=== PATIENT | female | born 1990 | race American Indian/Alaskan Native ===

== ENCOUNTER 2018-04-03 13:27 | Emergency (ER) | payer MEDICAID ==
[2018-04-03 13:46] VITALS: BP 131/78
--- NOTE | 2018-04-03 13:47 | Emergency Department Report ---
Chief Complaint: Sore Throat Stated Complaint: SORE THROAT/HEADACHE/VOMITING Time Seen by Provider: 04/03/18 13:43 - HPI History of Present Illness: CO SORE THROAT NO FEVER LMP 1 M AGO TRYING TO GET PREG PMH HTN RX NONE PCP NONE PSH [facility] INTACT NO ABSCESS MSE COMPLETED MSE screening note: Focused history and physical exam performed. Due to findings the following was ordered: ED Disposition for MSE Condition: Stable
--- NOTE | 2018-04-03 14:31 | Emergency Department Report ---
Minor Respiratory - HPI Chief Complaint: Sore Throat Stated Complaint: SORE THROAT/HEADACHE/VOMITING Time Seen by Provider: 04/03/18 13:43 Duration: 3 Days Pain Location: Throat Severity: severe ( 11/19) Minor Respiratory: Yes Rhinorrhea (postnasal drip), Yes Sore Throat (Assessment and sore worse with swallowing. no drooling), Yes Able to Tolerate Fluids, No Ear Pain, No Cough, No Sick Contacts, No Hemoptysis, No Chest Pain, No Shortness of Breath, No Fever Other History: This is a 24-year-old female here report that she has sore throat 3 days and she has been having nausea and vomiting suspect that she is . Last menstrual period was 03/03/2018. Denies any abdominal or back pain. Denies any fever chills or any vaginal bleeding or discharge. Denies any cough, shortness of breath. ED Review of Systems ROS: Stated complaint: SORE THROAT/HEADACHE/VOMITING Other details as noted in HPI Constitutional: denies: chills, fever ENT: throat pain, congestion (postnasal drip). denies: ear pain, dental pain Respiratory: denies: cough, shortness of breath, wheezing Cardiovascular: denies: chest pain, palpitations, edema, syncope Gastrointestinal: nausea, vomiting. denies: abdominal pain, diarrhea Musculoskeletal: denies: back pain, joint swelling, arthralgia, myalgia Skin: denies: rash Neurological: denies: headache, weakness, abnormal gait, vertigo ED Past Medical Hx - Past Medical History Previous Medical History?: Yes Hx Hypertension: Yes (no meds) - Surgical History Past Surgical History?: Yes Additional Surgical History: tonsillectomy. Jaw wired. - Family History Family history: hypertension - Social History Smoking Status: Never Smoker Substance Use Type: None - Medications Home Medications: Home Medications Medication Instructions Recorded Confirmed Last Taken Type metroNIDAZOLE [Flagyl TAB] 500 mg PO Q12HR 7 Days tab 12/21/14 Unknown Rx Fluticasone [Flonase] 1 spray NS QDAY #1 bottle 06/13/15 Unknown Rx Ibuprofen [Motrin] 600 mg PO Q8H PRN #30 tablet 06/13/15 Unknown Rx guaiFENesin ER [Mucinex ER] 600 mg PO Q12H 5 Days #10 tablet.er 04/03/18 Unknown Rx Minor Respiratory Exam - Exam General: Vital signs noted. No distress. Alert and acting appropriately. This is a 28-year-old female well-nourished well-developed in no acute distress. HEENT: Yes Moist Mucous Membranes (uvula midline and oral airways patent), Yes Rhinorrhea (his mucosa pale and boggy with clear drainage), No Pharyngeal Erythema, No Pharyngeal Exudates, No Conjuctival Injection, No Frontal Tenderness, No Maxillary Tenderness Ear: Neither TM Bulge (bilateral TM congested), Neither TM Erythema, Neither EAC Pain, Neither EAC Discharge Neck: Yes Supple (full range of motion), No Adenopathy Lungs: Yes Good Air Exchange, No Wheezes, No Ronchi, No Stridor, No Cough, No Labored Respirations, No Retractions, No Use of Accessory Muscles, No Other Abnormal Lung Sounds Heart: Yes Regular, No Murmur Abdomen: Yes Normal Bowel Sounds (normal bowel sounds in all quadrants), No Tenderness (nontender to palpate in all quadrants.), No Peritoneal Signs Skin: No Rash, No Edema Neurologic: Alert and oriented 3, no deficits. Musculoskeletal: Unremarkable. No cce. + 2 pulses in all extremities, no neurovascular compromise ED Course Vital Signs 04/03/18 13:43 Temperature 98.8 F Pulse Rate 91 H Respiratory 18 Rate Blood Pressure 131/78 O2 Sat by Pulse 100 Oximetry - Reevaluation(s) Reevaluation #1: 04/03/18 14:52 Patient states throughout ED course ED Medical Decision Making - Lab Data Lab Results 04/03/18 Range/Units 13:46 Group A Strep Rapid Negative (Negative) - Medical Decision Making This 28-year-old female here report sore throat and nausea and vomiting and suspect that she is . She does not have any related issue. Patient found to have allergic rhinitis. I discussed with her that her strep test is negative and I will refer her to VIDEO RENTAL CLERK if she does not have one and also referred to primary care. She voiced understanding. Patient discharged home in stable condition given instruction to take Mucinex and to follow-up in 3 days. Vital signs are stable she is afebrile and in no acute distress Critical care attestation.: If time is entered above; I have spent that time in minutes in the direct care of this critically ill patient, excluding procedure time. ED Disposition Clinical Impression: Acute pharyngitis Qualifiers: Pharyngitis/tonsillitis etiology: other specified organisms Qualified Code(s): J02.8 - Acute pharyngitis due to other specified organisms Allergic rhinitis Qualifiers: Allergic rhinitis trigger: unspecified Allergic rhinitis seasonality: unspecified Qualified Code(s): J30.9 - Allergic rhinitis, unspecified Disposition: DC-01 TO HOME OR SELFCARE Is pt being admited?: No Does the pt Need Aspirin: No Condition: Stable Instructions: Pharyngitis (ED), Allergic Rhinitis (ED) Additional Instructions: Take medication as prescribed. He can take [id number] Tylenol per dosing chart guidelines not to exceed 2 g. Please follow-up with primary care and VIDEO RENTAL CLERK for concern of being . The test to check. Prescriptions: guaiFENesin ER [Mucinex ER] 600 mg PO Q12H 5 Days #10 tablet.er Referrals: [facility] [Provider Group] - 04/06/18 [facility] [Outside] - 04/06/18 Forms: Work/School Release Form(ED)
== END 2018-04-03 15:03 | disposition home or self-care (01) ==
LOC: ED 13:27
DX: J30.9 Allergic rhinitis, unspecified (principal); J02.8 Acute pharyngitis due to other specified organisms; I10 Essential (primary) hypertension
CPT/HCPCS: 87116; 87430

== ENCOUNTER 2018-04-10 00:26 | Emergency (ER) | payer MEDICAID ==
[2018-04-10 00:35] VITALS: BP 152/96
[2018-04-10 02:02] LABS: HCG Qualitative,Urine Negative (Negative)
[2018-04-10 02:07] LABS: Bilirubin,Urine NEG (Negative); Blood,Urine LG (Negative); Color,Urine Yellow (Yellow); Mucus,Urine 1+ /HPF
[2018-04-10 02:12] LABS: RBC,Urine > 182.0 /HPF (0.0-6.0)
[2018-04-10] MEDS ORDERED: LEVAQUIN PO STA (02:14)
--- NOTE | 2018-04-10 03:05 | Emergency Department Report ---
ED Female HPI - General Chief complaint: Urogenital-Female Stated complaint: FREQUENT URINATION/DEHYDRATION Time Seen by Provider: 04/10/18 02:45 Source: patient Mode of arrival: Ambulatory Limitations: No Limitations - History of Present Illness Initial comments: 28-year-old Filipino female, doesn't emergency department complaining of a 2 week history of increased urinary urgency increased urinary frequency. Mild pelvic pressure. She became more work today as she had a bout of enuresis today spontaneously reported mouth flank pain that preceded the about that has since resolved. No fever, chills, sweats, congestion palpitations. No heat, no no hematuria, no vaginal discharge, vaginal bleeding. She reports no pelvic pain. She denies any trauma. MD Complaint: dysuria Location: suprapubic Radiation: non-radiating Quality: dull Consistency: constant Worsens with: urination Associated Symptoms: denies: vaginal discharge, vaginal bleeding, abdominal pain, nausea/vomiting, fever/chills, headaches, loss of appetite, hematuria, rash, shortness of breath, syncope, weakness - Related Data Previous Rx's Medication Instructions Recorded Last Taken Type metroNIDAZOLE [Flagyl TAB] 500 mg PO Q12HR 7 Days tab 12/21/14 Unknown Rx Fluticasone [Flonase] 1 spray NS QDAY #1 bottle 06/13/15 Unknown Rx Ibuprofen [Motrin] 600 mg PO Q8H PRN #30 tablet 06/13/15 Unknown Rx guaiFENesin ER [Mucinex ER] 600 mg PO Q12H 5 Days #10 tablet.er 04/03/18 Unknown Rx Nitrofurantoin Monohyd/M-Cryst 100 mg PO BID #20 capsule 04/10/18 Unknown Rx [Macrobid 100 mg Capsule] Phenazopyridine [Pyridium] 200 mg PO TID #9 tab 04/10/18 Unknown Rx Allergies Allergy/AdvReac Type Severity Reaction Status Date / Time No Known Allergies Allergy Unverified 12/21/14 13:27 ED Review of Systems ROS: Stated complaint: FREQUENT URINATION/DEHYDRATION Other details as noted in HPI Constitutional: denies: chills, fever Eyes: denies: eye pain, eye discharge, vision change ENT: denies: ear pain, throat pain Respiratory: denies: cough, shortness of breath, wheezing Cardiovascular: denies: chest pain, palpitations Endocrine: no symptoms reported Gastrointestinal: denies: abdominal pain, nausea, diarrhea Genitourinary: denies: urgency, dysuria, discharge Musculoskeletal: denies: back pain, joint swelling, arthralgia Skin: denies: rash, lesions Neurological: denies: headache, weakness, paresthesias Psychiatric: denies: anxiety, depression Hematological/Lymphatic: denies: easy bleeding, easy bruising ED Past Medical Hx - Past Medical History Hx Hypertension: Yes (no meds) - Surgical History Additional Surgical History: tonsillectomy. Jaw wired. - Social History Smoking Status: Never Smoker Substance Use Type: None - Medications Home Medications: Home Medications Medication Instructions Recorded Confirmed Last Taken Type metroNIDAZOLE [Flagyl TAB] 500 mg PO Q12HR 7 Days tab 12/21/14 Unknown Rx Fluticasone [Flonase] 1 spray NS QDAY #1 bottle 06/13/15 Unknown Rx Ibuprofen [Motrin] 600 mg PO Q8H PRN #30 tablet 06/13/15 Unknown Rx guaiFENesin ER [Mucinex ER] 600 mg PO Q12H 5 Days #10 tablet.er 04/03/18 Unknown Rx Nitrofurantoin Monohyd/M-Cryst 100 mg PO BID #20 capsule 04/10/18 Unknown Rx [Macrobid 100 mg Capsule] Phenazopyridine [Pyridium] 200 mg PO TID #9 tab 04/10/18 Unknown Rx ED Physical Exam - General Limitations: No Limitations General appearance: alert, in no apparent distress - Head Head exam: Present: atraumatic, normocephalic - Eye Eye exam: Present: normal appearance - ENT ENT exam: Present: mucous membranes moist - Neck Neck exam: Present: normal inspection - Respiratory Respiratory exam: Present: normal lung sounds bilaterally. Absent: respiratory distress - Cardiovascular Cardiovascular Exam: Present: regular rate, normal rhythm. Absent: systolic murmur, diastolic murmur, rubs, gallop - GI/Abdominal GI/Abdominal exam: Present: soft, normal bowel sounds - Extremities Exam Extremities exam: Present: normal inspection - Back Exam Back exam: Present: normal inspection - Neurological Exam Neurological exam: Present: alert, oriented X3 - Psychiatric Psychiatric exam: Present: normal affect, normal mood - Skin Skin exam: Present: warm, dry, intact, normal color. Absent: rash ED Course Vital Signs 04/10/18 00:33 Temperature 98.9 F Pulse Rate 94 H Respiratory 16 Rate Blood Pressure 152/96 O2 Sat by Pulse 97 Oximetry Critical care attestation.: If time is entered above; I have spent that time in minutes in the direct care of this critically ill patient, excluding procedure time. ED Disposition Clinical Impression: UTI (urinary tract infection) Disposition: - TO HOME OR SELFCARE Is pt being admited?: No Does the pt Need Aspirin: No Condition: Stable Instructions: Urinary Tract Infection in Women (ED), Phenazopyridine (By mouth) Prescriptions: Nitrofurantoin Monohyd/M-Cryst [Macrobid 100 mg Capsule] 100 mg PO BID #20 capsule Phenazopyridine [Pyridium] 200 mg PO TID #9 tab Referrals: ILSA HERNÁNDEZ MD [Primary Care Provider] - 3-5 Days
== END 2018-04-10 03:10 | disposition home or self-care (01) ==
LOC: ED 00:26
DX: N39.0 Urinary tract infection, site not specified (principal); I10 Essential (primary) hypertension; Z90.89 Acquired absence of other organs
CPT/HCPCS: 81001; 81025; 99283

== ENCOUNTER 2018-04-28 18:53 | Emergency (ER) | payer MEDICAID | END 2018-04-28 22:24 | disposition left against medical advice (07) | LOC: ED 18:53 | DX: M79.89 Other specified soft tissue disorders (principal); Z53.21 Procedure and treatment not carried out due to patient leaving prior to being seen by health care provider ==

== ENCOUNTER 2018-08-27 03:05 | Emergency (ER) | payer MEDICAID ==
[2018-08-27 03:22] VITALS: BP 127/79
[2018-08-27 04:56] LABS: HCG Qualitative,Urine Negative (Negative)
[2018-08-27 05:22] LABS: Bacteria,Urine 2+ /HPF (Negative); Bilirubin,Urine NEG (Negative); Blood,Urine NEG (Negative); Color,Urine Yellow (Yellow); Mucus,Urine 3+ /HPF; Protein,Urine <15 mg/dL mg/dL (Negative); Urobilinogen,Urine < 2.0 mg/dL (<2.0)
== END 2018-08-27 04:50 | disposition left against medical advice (07) ==
LOC: ED 03:05
DX: R10.30 Lower abdominal pain, unspecified (principal); N89.8 Other specified noninflammatory disorders of vagina; Z53.21 Procedure and treatment not carried out due to patient leaving prior to being seen by health care provider
CPT/HCPCS: 81001; 81025; 87086

== ENCOUNTER 2018-08-29 15:26 | Emergency (ER) | payer MEDICAID ==
--- NOTE | 2018-08-29 15:42 | Event Note ---
ED Screening Note Date of service: 08/29/18 Time: 15:41 ED Screening Note: 28 y/o female comes in for lower back pain abnormal ua. Vaginal discharge. This initial assessment/diagnostic orders/clinical plan/treatment(s) is/are subject to change based on patients health status, clinical progression and re- assessment by fellow clinical providers in the ED. Further treatment and workup at subsequent clinical providers discretion. Patient/guardian urged not to elope from the ED as their condition may be serious if not clinically assessed and managed. Initial orders include:
[2018-08-29 15:44] VITALS: BP 129/92
[2018-08-29] MEDS ORDERED: XYLOCAINE 1% MPF 5 mL INFILTRATI ONE (16:52)
[2018-08-29] MEDS ORDERED: ROCEPHIN IM ONE (16:52)
--- NOTE | 2018-08-29 17:22 | Emergency Department Report ---
ED Female HPI - General Chief complaint: Urogenital-Female Stated complaint: CHEST PAIN/DISCHARGE Time Seen by Provider: 08/29/18 16:06 Source: patient Mode of arrival: Ambulatory Limitations: No Limitations - History of Present Illness Initial comments: This is a 28-year-old female returns to the ED after being here 2 days ago with symptoms of dysuria and low back pain. Patient was called to return to the ED for treatment. Patient returns today complaining of urinary frequency and dysuria. She denies fevers/chills/nausea vomiting MD Complaint: dysuria - Related Data Previous Rx's Medication Instructions Recorded Last Taken Type metroNIDAZOLE [Flagyl TAB] 500 mg PO Q12HR 7 Days tab 12/21/14 Unknown Rx Fluticasone [Flonase] 1 spray NS QDAY #1 bottle 06/13/15 Unknown Rx Ibuprofen [Motrin] 600 mg PO Q8H PRN #30 tablet 06/13/15 Unknown Rx guaiFENesin ER [Mucinex ER] 600 mg PO Q12H 5 Days #10 tablet.er 04/03/18 Unknown Rx Nitrofurantoin Monohyd/M-Cryst 100 mg PO BID #20 capsule 04/10/18 Unknown Rx [Macrobid 100 mg Capsule] Phenazopyridine [Pyridium] 200 mg PO TID #9 tab 04/10/18 Unknown Rx Fluconazole [Diflucan TAB] 200 mg PO QDAY #1 tablet 08/29/18 Unknown Rx metroNIDAZOLE [Flagyl TAB] 500 mg PO Q12HR #14 tab 08/29/18 Unknown Rx Allergies Allergy/AdvReac Type Severity Reaction Status Date / Time No Known Allergies Allergy Verified 08/29/18 15:44 ED Review of Systems ROS: Stated complaint: CHEST PAIN/DISCHARGE Other details as noted in HPI Comment: All other systems reviewed and negative ED Past Medical Hx - Past Medical History Hx Hypertension: Yes (no meds) - Surgical History Additional Surgical History: tonsillectomy. Jaw wired. - Social History Smoking Status: Never Smoker Substance Use Type: None - Medications Home Medications: Home Medications Medication Instructions Recorded Confirmed Last Taken Type metroNIDAZOLE [Flagyl TAB] 500 mg PO Q12HR 7 Days tab 12/21/14 Unknown Rx Fluticasone [Flonase] 1 spray NS QDAY #1 bottle 06/13/15 Unknown Rx Ibuprofen [Motrin] 600 mg PO Q8H PRN #30 tablet 06/13/15 Unknown Rx guaiFENesin ER [Mucinex ER] 600 mg PO Q12H 5 Days #10 tablet.er 04/03/18 Unknown Rx Nitrofurantoin Monohyd/M-Cryst 100 mg PO BID #20 capsule 04/10/18 Unknown Rx [Macrobid 100 mg Capsule] Phenazopyridine [Pyridium] 200 mg PO TID #9 tab 04/10/18 Unknown Rx Fluconazole [Diflucan TAB] 200 mg PO QDAY #1 tablet 08/29/18 Unknown Rx metroNIDAZOLE [Flagyl TAB] 500 mg PO Q12HR #14 tab 08/29/18 Unknown Rx ED Physical Exam - General Limitations: No Limitations General appearance: alert, in no apparent distress - Head Head exam: Present: atraumatic, normocephalic - Eye Eye exam: Present: normal appearance - ENT ENT exam: Present: mucous membranes moist - Neck Neck exam: Present: normal inspection - Respiratory Respiratory exam: Present: normal lung sounds bilaterally. Absent: respiratory distress - Cardiovascular Cardiovascular Exam: Present: regular rate, normal rhythm. Absent: systolic murmur, diastolic murmur, rubs, gallop - GI/Abdominal GI/Abdominal exam: Present: soft, normal bowel sounds. Absent: distended, tenderness, guarding, mass - Extremities Exam Extremities exam: Present: normal inspection - Back Exam Back exam: Present: normal inspection - Neurological Exam Neurological exam: Present: alert, oriented X3 - Psychiatric Psychiatric exam: Present: normal affect, normal mood - Skin Skin exam: Present: warm, dry, intact, normal color. Absent: rash ED Course Vital Signs 08/29/18 15:42 Temperature 98.4 F Pulse Rate 88 Respiratory 18 Rate Blood Pressure 129/92 O2 Sat by Pulse 97 Oximetry ED Medical Decision Making - Medical Decision Making This is a 28-year-old female presents with urinary tract infection. Urinalysis was positive for leukocytes Patient treated with Rocephin IM in the ED. Discussed with patient that she will be sent home with a prescription of metronidazole and Diflucan for her vaginitis. Discussed follow-up with her PROPERTY AND EQUIPMENT CLERK or [facility] for further evaluation. Vital signs are normal she is in no acute distress. Critical care attestation.: If time is entered above; I have spent that time in minutes in the direct care of this critically ill patient, excluding procedure time. ED Disposition Clinical Impression: UTI (urinary tract infection), Vaginitis Disposition: DC-01 TO HOME OR SELFCARE Is pt being admited?: No Does the pt Need Aspirin: No Condition: Stable Instructions: Urinary Tract Infection in Women (ED), Vaginitis (ED) Additional Instructions: Make sure to follow up with the primary care physician as discussed. Take all your medications as you've been prescribed. If you have any worsening symptoms or develop new symptoms please return to ED immediately. Prescriptions: Fluconazole [Diflucan TAB] 200 mg PO QDAY #1 tablet metroNIDAZOLE [Flagyl TAB] 500 mg PO Q12HR #14 tab Referrals: MARIA LUZ EPSTEIN MD [Primary Care Provider] - 3-5 Days [facility] [Outside] - 3-5 Days [facility] [Outside] - 3-5 Days Forms: Accompanied Note, Work/School Release Form(ED) Time of Disposition: 17:30
[2018-08-29 19:05] LABS: Bilirubin,Urine NEG (Negative); Blood,Urine NEG (Negative); Color,Urine Yellow (Yellow); Mucus,Urine FEW /HPF; Protein,Urine <15 mg/dL mg/dL (Negative); Urobilinogen,Urine < 2.0 mg/dL (<2.0)
== END 2018-08-29 18:21 | disposition home or self-care (01) ==
LOC: ED 15:26
DX: N39.0 Urinary tract infection, site not specified (principal); N76.0 Acute vaginitis; B96.89 Other specified bacterial agents as the cause of diseases classified elsewhere; I10 Essential (primary) hypertension; Z90.89 Acquired absence of other organs; Z79.899 Other long term (current) drug therapy; Z79.1 Long term (current) use of non-steroidal anti-inflammatories (NSAID)
CPT/HCPCS: 81001; 87086; 96372; 99283; J0696

== ENCOUNTER 2019-03-28 19:29 | Emergency (ER) | payer MEDICAID ==
[2019-03-28 20:40] VITALS: BP 132/82
[2019-03-28] MEDS ORDERED: ACETAMINOPHEN 325 MG TAB PO ONE (21:39)
--- NOTE | 2019-03-28 21:43 | Emergency Department Report ---
Chief Complaint: Abdominal Pain Stated Complaint: POSS MISCARRIAGE - HPI History of Present Illness: 29 y.o. female with history of six prior pregnancies with five living kids presents with complaint of abdominal pain for the past couple of days. Patient complains of pain in her lower back. Patient states that she did a home test which was positive. Patient states that her last normal period was 02/16/19. Patient states that she saw light pink bleeding on 03/19 and had not seen blood after that until today and thus presented to the ER. Patient states that she has had no clots. - Exam Vital Signs: Vital Signs 03/28/19 19:52 Temperature 99.0 F Pulse Rate 81 Respiratory 18 Rate Blood Pressure 132/82 O2 Sat by Pulse 98 Oximetry MSE screening note: Focused history and physical exam performed. Due to findings the following was ordered: Paitent to have urine and serum and us performed. Patient given tylenol for pain control. ED Disposition for MSE Condition: Stable Instructions: Abdominal Pain (ED)
[2019-03-28 22:33] LABS: HCG Qualitative,Urine Negative (Negative)
[2019-03-28] MEDS ORDERED: ONDANSETRON 4 MG ODT TAB PO ONE (22:40)
--- NOTE | 2019-03-28 22:53 | Ultrasound Report ---
ULTRASOUND OBSTETRIC INDICATION / CLINICAL INFORMATION: abdominal pain. Clinical Gestational Age (GA): 5 weeks 5 days TECHNIQUE: Transabdominal. COMPARISON: None available. FINDINGS: No evidence of gestational sac within the uterus. Endometrial stripe is of normal thickness measuring 5 mm. Uterine size is normal measuring 9.9 x 4.3 x 5.4 cm. ADNEXA: Both ovaries are well-visualized and have a normal sonographic appearance. No adnexal mass id entified. FREE FLUID: None. ADDITIONAL FINDINGS: None. IMPRESSION: 1. No evidence of gestational sac within the uterus. No evidence of adnexal mass or free fluid. Signer Name: Susie Hanley MD Signed: 03/28/2019 10:48 PM Workstation Name: [id number]
--- NOTE | 2019-03-28 22:59 | Emergency Department Report ---
ED Female HPI - General Chief complaint: Abdominal Pain Stated complaint: POSS MISCARRIAGE Time Seen by Provider: 03/28/19 22:37 Source: patient Mode of arrival: Ambulatory Limitations: No Limitations - History of Present Illness Initial comments: 29 y.o. female with history of six prior pregnancies with five living kids presents with complaint of abdominal pain for the past couple of days. Patient complains of pain in her lower back. Patient states that she did a home test which was positive. Patient states that her last normal period was 02/16/19. Patient states that she saw light pink bleeding on 03/19 and had not seen blood after that until today and thus presented to the ER. Patient states that she has had no clots. Severity scale (0 -10): 5 Quality: sharp, other (Crampy) Consistency: intermittent Improves with: none Worsens with: none Are you Now?: No Last Menstrual Period: 02/16/19 EDC: 11/23/19 Associated Symptoms: nausea/vomiting (No vomiting) - Related Data Previous Rx's Medication Instructions Recorded Last Taken Type metroNIDAZOLE [Flagyl TAB] 500 mg PO Q12HR 7 Days tab 12/21/14 Unknown Rx Fluticasone [Flonase] 1 spray NS QDAY #1 bottle 06/13/15 Unknown Rx Ibuprofen [Motrin] 600 mg PO Q8H PRN #30 tablet 06/13/15 Unknown Rx guaiFENesin ER [Mucinex ER] 600 mg PO Q12H 5 Days #10 tablet.er 04/03/18 Unknown Rx Nitrofurantoin Monohyd/M-Cryst 100 mg PO BID #20 capsule 04/10/18 Unknown Rx [Macrobid 100 mg Capsule] Phenazopyridine [Pyridium] 200 mg PO TID #9 tab 04/10/18 Unknown Rx Fluconazole [Diflucan TAB] 200 mg PO QDAY #1 tablet 08/29/18 Unknown Rx metroNIDAZOLE [Flagyl TAB] 500 mg PO Q12HR #14 tab 08/29/18 Unknown Rx Allergies Allergy/AdvReac Type Severity Reaction Status Date / Time No Known Allergies Allergy Verified 08/29/18 15:44 ED Review of Systems ROS: Stated complaint: POSS MISCARRIAGE Other details as noted in HPI ED Past Medical Hx - Past Medical History Previous Medical History?: Yes Hx Hypertension: Yes (no meds) - Surgical History Past Surgical History?: Yes Additional Surgical History: tonsillectomy. Jaw wired. - Social History Smoking Status: Never Smoker Substance Use Type: None - Medications Home Medications: Home Medications Medication Instructions Recorded Confirmed Last Taken Type metroNIDAZOLE [Flagyl TAB] 500 mg PO Q12HR 7 Days tab 12/21/14 Unknown Rx Fluticasone [Flonase] 1 spray NS QDAY #1 bottle 06/13/15 Unknown Rx Ibuprofen [Motrin] 600 mg PO Q8H PRN #30 tablet 06/13/15 Unknown Rx guaiFENesin ER [Mucinex ER] 600 mg PO Q12H 5 Days #10 tablet.er 04/03/18 Unknown Rx Nitrofurantoin Monohyd/M-Cryst 100 mg PO BID #20 capsule 04/10/18 Unknown Rx [Macrobid 100 mg Capsule] Phenazopyridine [Pyridium] 200 mg PO TID #9 tab 04/10/18 Unknown Rx Fluconazole [Diflucan TAB] 200 mg PO QDAY #1 tablet 08/29/18 Unknown Rx metroNIDAZOLE [Flagyl TAB] 500 mg PO Q12HR #14 tab 08/29/18 Unknown Rx ED Physical Exam - General Limitations: No Limitations ED Course Vital Signs 03/28/19 03/28/19 19:52 22:44 Temperature 99.0 F Pulse Rate 81 Respiratory 18 20 Rate Blood Pressure 132/82 O2 Sat by Pulse 98 Oximetry ED Medical Decision Making - Lab Data Result diagrams: 03/28/19 23:11 03/28/19 23:11 - Medical Decision Making 29 y.o. female with history of six prior pregnancies with five living kids presents with complaint of abdominal pain for the past couple of days. Patient complains of pain in her lower back. Patient states that she did a home test which was positive. Patient states that her last normal period was 02/16/19. Patient states that she saw light pink bleeding on 03/19 and had not seen blood after that until today and thus presented to the ER. Patient states that she has had no clots. Ultrasound shows no intrauterine gestation hCG urine is negative hCG serum is less than 2. Vital signs are stable labs are stable patient is to follow-up with her primary care provider. Critical care attestation.: If time is entered above; I have spent that time in minutes in the direct care of this critically ill patient, excluding procedure time. ED Disposition Clinical Impression: Negative test, Vaginal bleeding Disposition: DC-01 TO HOME OR SELFCARE Is pt being admited?: No Does the pt Need Aspirin: No Condition: Stable Instructions: Abdominal Pain (ED) Additional Instructions: Ultrasound shows no . Lab work shows no , vital signs are stable labs are stable patient is to follow-up with her primary care provider. Referrals: PRIMARY CARE, [Primary Care Provider] - 3-5 Days Forms: Work/School Release Form(ED)
[2019-03-28 23:27] LABS: Hematocrit 38.5 % (30.3-42.9); Hemoglobin 12.7 gm/dl (10.1-14.3); Mean Corpuscular HGB Conc 33 % (30-34); Mean Corpuscular Volume 83 fl (79-97); Platelet Count 311 K/mm3 (140-440); Red Blood Count 4.65 M/mm3 (3.65-5.03); Red Cell Distribution Width 14.8 % (13.2-15.2)
[2019-03-29 00:04] LABS: Alanine Aminotransferase 9 units/L (7-56); Albumin 4.2 g/dL (3.9-5); BUN/Creatinine Ratio 16; Blood Urea Nitrogen 11 mg/dL (7-17); Calcium 9.5 mg/dL (8.4-10.2); Hemolysis Index 2
[2019-03-29 00:47] LABS: Bacteria,Urine 1+ /HPF (Negative); Bilirubin,Urine NEG (Negative); Blood,Urine LG (Negative); Color,Urine Yellow (Yellow); Mucus,Urine 2+ /HPF; Protein,Urine <15 mg/dL mg/dL (Negative)
== END 2019-03-29 01:12 | disposition home or self-care (01) ==
LOC: ED 19:29
DX: N93.9 Abnormal uterine and vaginal bleeding, unspecified (principal); I10 Essential (primary) hypertension; Z90.89 Acquired absence of other organs; Z79.899 Other long term (current) drug therapy; Z32.02 Encounter for pregnancy test, result negative
CPT/HCPCS: 36415; 76801; 80053; 81001; 81025; 83690; 84702; 85027; Q0162

== ENCOUNTER 2021-07-10 09:37 | Emergency (ER) | payer MEDICAID ==
[2021-07-10 10:15] VITALS: BP 120/81
[2021-07-10 11:11] LABS: Basophils % (Auto) 0.8 % (0.0-1.8); Eosinophils % (Auto) 1.1 % (0.0-4.3); Hematocrit 38.3 % (30.3-42.9); Hemoglobin 12.6 gm/dl (10.1-14.3); Lymphocytes # (Auto) 1.4 K/mm3 (1.2-5.4); Mean Corpuscular HGB Conc 33 % (30-34); Mean Corpuscular Volume 86 fl (79-97); Monocytes # (Auto) 0.4 K/mm3 (0.0-0.8); Platelet Count 237 K/mm3 (140-440); Red Blood Count 4.47 M/mm3 (3.65-5.03); Red Cell Distribution Width 15.5 % (13.2-15.2)
[2021-07-10 11:29] LABS: Alanine Aminotransferase 7 units/L (7-56); Albumin 4.1 g/dL (3.9-5); Blood Urea Nitrogen 9 mg/dL (7-17); Calcium 9.3 mg/dL (8.4-10.2); Hemolysis Index 8
[2021-07-10 11:30] LABS: BUN/Creatinine Ratio 13
[2021-07-10 12:10] LABS: Bacteria,Urine 2+ /HPF (Negative); Bilirubin,Urine NEG (Negative); Blood,Urine LG (Negative); Color,Urine Amber (Yellow); Mucus,Urine 3+ /HPF
--- NOTE | 2021-07-10 12:56 | Emergency Department Report ---
ED Female HPI - General Chief complaint: Vaginal Bleeding Stated complaint: 6 WKS PREG/BLEEDING Time Seen by Provider: 07/10/21 11:32 Source: patient Mode of arrival: Ambulatory Limitations: No Limitations - History of Present Illness Initial comments: Patient is a 31-year-old female that comes to the ER with vaginal bleeding. Last menstrual 417. She saw her CONTINUITY EDITOR last week. She started to have vaginal bleeding this morning. Mild cramping. No dysuria. No vaginal discharge. She is ambulatory, nontoxic and [id number] MD Complaint: vaginal bleeding -: Sudden, days(s) Severity: mild Severity scale (0 -10): 1 Quality: cramping Consistency: intermittent Improves with: none Worsens with: none Are you Now?: Yes Last Menstrual Period: 05/27/21 EDC: 03/03/22 Associated Symptoms: denies other symptoms - Related Data Sexually active: Yes : 6 Para: 5 Previous Rx's Medication Instructions Recorded Last Taken Type metroNIDAZOLE [Flagyl TAB] 500 mg PO Q12HR 7 Days tab 12/21/14 Unknown Rx Fluticasone [Flonase] 1 spray NS QDAY #1 bottle 06/13/15 Unknown Rx Ibuprofen [Motrin] 600 mg PO Q8H PRN #30 tablet 06/13/15 Unknown Rx guaiFENesin ER [Mucinex ER] 600 mg PO Q12H 5 Days #10 tablet.er 04/03/18 Unknown Rx Nitrofurantoin Monohyd/M-Cryst 100 mg PO BID #20 capsule 04/10/18 Unknown Rx [Macrobid 100 mg Capsule] Phenazopyridine [Pyridium] 200 mg PO TID #9 tab 04/10/18 Unknown Rx Fluconazole [Diflucan TAB] 200 mg PO QDAY #1 tablet 08/29/18 Unknown Rx metroNIDAZOLE [Flagyl TAB] 500 mg PO Q12HR #14 tab 08/29/18 Unknown Rx Allergies Allergy/AdvReac Type Severity Reaction Status Date / Time No Known Allergies Allergy Verified 08/29/18 15:44 ED Review of Systems ROS: Stated complaint: 6 WKS PREG/BLEEDING Other details as noted in HPI Comment: All other systems reviewed and negative ED Past Medical Hx - Past Medical History Previous Medical History?: Yes Hx Hypertension: Yes (no meds) - Surgical History Past Surgical History?: Yes Additional Surgical History: tonsillectomy. Jaw wired. . Gastric bypass 03/2021 - Family History Family history: no significant - Social History Smoking Status: Never Smoker Substance Use Type: None - Medications Home Medications: Home Medications Medication Instructions Recorded Confirmed Last Taken Type metroNIDAZOLE [Flagyl TAB] 500 mg PO Q12HR 7 Days tab 12/21/14 Unknown Rx Fluticasone [Flonase] 1 spray NS QDAY #1 bottle 06/13/15 Unknown Rx Ibuprofen [Motrin] 600 mg PO Q8H PRN #30 tablet 06/13/15 Unknown Rx guaiFENesin ER [Mucinex ER] 600 mg PO Q12H 5 Days #10 tablet.er 04/03/18 Unknown Rx Nitrofurantoin Monohyd/M-Cryst 100 mg PO BID #20 capsule 04/10/18 Unknown Rx [Macrobid 100 mg Capsule] Phenazopyridine [Pyridium] 200 mg PO TID #9 tab 04/10/18 Unknown Rx Fluconazole [Diflucan TAB] 200 mg PO QDAY #1 tablet 08/29/18 Unknown Rx metroNIDAZOLE [Flagyl TAB] 500 mg PO Q12HR #14 tab 08/29/18 Unknown Rx ED Physical Exam - General Limitations: No Limitations General appearance: alert, in no apparent distress - Head Head exam: Present: atraumatic, normocephalic - Eye Eye exam: Present: normal appearance - ENT ENT exam: Present: mucous membranes moist - Neck Neck exam: Present: normal inspection - Respiratory Respiratory exam: Present: normal lung sounds bilaterally. Absent: respiratory distress - Cardiovascular Cardiovascular Exam: Present: regular rate, normal rhythm. Absent: systolic murmur, diastolic murmur, rubs, gallop - GI/Abdominal GI/Abdominal exam: Present: soft, normal bowel sounds - Extremities Exam Extremities exam: Present: normal inspection - Back Exam Back exam: Present: normal inspection - Neurological Exam Neurological exam: Present: alert, oriented X3 - Psychiatric Psychiatric exam: Present: normal affect, normal mood - Skin Skin exam: Present: warm, dry, intact, normal color. Absent: rash ED Course Vital Signs 07/10/21 10:11 Temperature 98.4 F Pulse Rate 66 Respiratory 16 Rate Blood Pressure 120/81 O2 Sat by Pulse 98 Oximetry ED Medical Decision Making - Lab Data Result diagrams: 07/10/21 10:42 07/10/21 10:42 - Radiology Data Radiology results: report reviewed, image reviewed See report - Medical Decision Making Lab Results 07/10/21 07/10/21 07/10/21 Range/Units 10:42 10:42 10:42 WBC 3.9 L (4.5-11.0) K/mm3 RBC 4.47 (3.65-5.03) M/mm3 Hgb 12.6 (10.1-14.3) gm/dl Hct 38.3 (30.3-42.9) % MCV 86 (79-97) fl MCH 28 (28-32) pg MCHC 33 (30-34) % RDW 15.5 H (13.2-15.2) % Plt Count 237 (140-440) K/mm3 Lymph % (Auto) 35.0 (13.4-35.0) % [place] % (Auto) 10.0 H (0.0-7.3) % Eos % (Auto) 1.1 (0.0-4.3) % Baso % (Auto) 0.8 (0.0-1.8) % Lymph # (Auto) 1.4 (1.2-5.4) K/mm3 [place] # (Auto) 0.4 (0.0-0.8) K/mm3 Eos # (Auto) 0.0 (0.0-0.4) K/mm3 Baso # (Auto) 0.0 (0.0-0.1) K/mm3 Seg Neutrophils % 53.1 (40.0-70.0) % Seg Neutrophils # 2.1 (1.8-7.7) K/mm3 Sodium 136 L (137-145) mmol/L Potassium 3.9 (3.6-5.0) mmol/L Chloride 103.4 (98-107) mmol/L Carbon Dioxide 21 L (22-30) mmol/L Anion Gap 16 mmol/L BUN 9 (7-17) mg/dL Creatinine 0.7 (0.6-1.2) mg/dL Estimated GFR > 60 ml/min BUN/Creatinine Ratio 13 % Glucose 81 (65-100) mg/dL Calcium 9.3 (8.4-10.2) mg/dL Total Bilirubin 0.40 (0.1-1.2) mg/dL AST 10 (5-40) units/L ALT 7 (7-56) units/L Alkaline Phosphatase 69 (35-129) units/L Total Protein 7.1 (6.3-8.2) g/dL Albumin 4.1 (3.9-5) g/dL Albumin/Globulin Ratio 1.4 % HCG, Quant 54224 H (0-4) mIU/mL Urine Color (Yellow) Urine Turbidity (Clear) Urine pH (5.0-7.0) Ur Specific [place] (1.003-1.030) Urine Protein (Negative) mg/dL Urine Glucose (UA) (Negative) mg/dL Urine Ketones (Negative) mg/dL Urine Blood (Negative) Urine Nitrite (Negative) Urine Bilirubin (Negative) Urine Urobilinogen (<2.0) mg/dL Ur Leukocyte Esterase (Negative) Urine WBC (Auto) (0.0-6.0) /HPF Urine RBC (Auto) (0.0-6.0) /HPF U Epithel Cells (Auto) (0-13.0) /HPF Urine Bacteria (Auto) (Negative) /HPF Urine Mucus /HPF Blood Type Ord Rhogam Gestat Weeks WEEKS 07/10/21 07/10/21 Range/Units 10:54 11:32 WBC (4.5-11.0) K/mm3 RBC (3.65-5.03) M/mm3 Hgb (10.1-14.3) gm/dl Hct (30.3-42.9) % MCV (79-97) fl MCH (28-32) pg MCHC (30-34) % RDW (13.2-15.2) % Plt Count (140-440) K/mm3 Lymph % (Auto) (13.4-35.0) % [place] % (Auto) (0.0-7.3) % Eos % (Auto) (0.0-4.3) % Baso % (Auto) (0.0-1.8) % Lymph # (Auto) (1.2-5.4) K/mm3 [place] # (Auto) (0.0-0.8) K/mm3 Eos # (Auto) (0.0-0.4) K/mm3 Baso # (Auto) (0.0-0.1) K/mm3 Seg Neutrophils % (40.0-70.0) % Seg Neutrophils # (1.8-7.7) K/mm3 Sodium (137-145) mmol/L Potassium (3.6-5.0) mmol/L Chloride (98-107) mmol/L Carbon Dioxide (22-30) mmol/L Anion Gap mmol/L BUN (7-17) mg/dL Creatinine (0.6-1.2) mg/dL Estimated GFR ml/min BUN/Creatinine Ratio % Glucose (65-100) mg/dL Calcium (8.4-10.2) mg/dL Total Bilirubin (0.1-1.2) mg/dL AST (5-40) units/L ALT (7-56) units/L Alkaline Phosphatase (35-129) units/L Total Protein (6.3-8.2) g/dL Albumin (3.9-5) g/dL Albumin/Globulin Ratio % HCG, Quant (0-4) mIU/mL Urine Color [place] (Yellow) Urine Turbidity Slightly-cloudy (Clear) Urine pH 5.0 (5.0-7.0) Ur Specific [place] 1.032 H (1.003-1.030) Urine Protein 30 mg/dl (Negative) mg/dL Urine Glucose (UA) Neg (Negative) mg/dL Urine Ketones 80 (Negative) mg/dL Urine Blood Lg (Negative) Urine Nitrite Neg (Negative) Urine Bilirubin Neg (Negative) Urine Urobilinogen 2.0 (<2.0) mg/dL Ur Leukocyte Esterase Neg (Negative) Urine WBC (Auto) 3.0 (0.0-6.0) /HPF Urine RBC (Auto) 30.0 (0.0-6.0) /HPF U Epithel Cells (Auto) 54.0 H (0-13.0) /HPF Urine Bacteria (Auto) 2+ (Negative) /HPF Urine Mucus 3+ /HPF Blood Type B POSITIVE Ord Rhogam Gestat Weeks Rh pos WEEKS Vital Signs 07/10/21 10:11 Temperature 98.4 F Pulse Rate 66 Respiratory 16 Rate Blood Pressure 120/81 O2 Sat by Pulse 98 Oximetry hCG noted Rh+ UA is normal. Ultrasound noted. Patient is to follow-up with CONTINU[facility] EDITOR in 48 hours. She understands plan of care. Patient ambulatory, nontoxic [id number]. - Differential Diagnosis Rule out AB, ectopic Critical care attestation.: If time is entered above; I have spent that time in minutes in the direct care of this critically ill patient, excluding procedure time. ED Disposition Clinical Impression: Vaginal bleeding in Disposition: 01 HOME / SELF CARE / HOMELESS Is pt being admited?: No Does the pt Need Aspirin: No Condition: Stable Instructions: Threatened Miscarriage, [id number] Additional Instructions: tylenol for pain pelvic rest follow up with obgyn in 48 hours referral below Referrals: KODI LOPEZ MD [Staff Physician] - 3-5 Days Time of Disposition: 13:40
--- NOTE | 2021-07-10 13:35 | Ultrasound Report ---
ULTRASOUND PELVIS INDICATION: vag bleed preg. TECHNIQUE: Transabdominal and Transvaginal. Duplex Color Doppler used: Yes. COMPARISON: None available FINDINGS: Uterus: Present. Size: 11.8 x 6.6 x 6.2 cm. Endometrial complex: A gestational sac contains a yolk sac and pole. heart tones are 120 bpm. Gestational age by ultrasound is 5 weeks 6 days. A second structure is seen within the gestation al sac which may represent a second smaller yolk sac. Mass lesions: None. Additional findings: None. Right Ovary -- Normal. Blood flow: Normal. Cyst or mass: None. Left Ovary-- Normal. Blood flow: Normal. Cyst or mass: None. Urinary Bladder: Normal. Free Fluid: None. Additional Findings: None. IMPRESSION: 1. Viable intrauterine dated 5 weeks 6 days by ultrasound. 2. Possible second smaller yolk sac within the gestational sac containing a pole. This is nonsp ecific but could represent a nonviable twin. This could be evaluated on follow-up. Signer Name: Addi Bland MD Signed: 07/10/2021 1:31 PM Workstation Name: [facility]
== END 2021-07-10 14:45 | disposition home or self-care (01) ==
LOC: ED 09:37
DX: O46.91 Antepartum hemorrhage, unspecified, first trimester (principal); Z3A.01 Less than 8 weeks gestation of pregnancy; I10 Essential (primary) hypertension
CPT/HCPCS: 36415; 76801; 76817; 80053; 81001; 84702; 85025; 86900; 86901; 99284